=== PATIENT | female | born 1945 | race Caucasian/White ===

== ENCOUNTER 2017-08-06 09:27 | Outpatient (CLI) | payer MEDICARE ==
--- NOTE | 2017-08-06 11:36 | RAD ---
LEFT KNEE 4 VIEWS: HISTORY: Knee pain. FINDINGS: Moderate degenerative changes are noted. There is narrowing of the medial joint space. There is cho ndrocalcinosis in the medial joint space along with moderate hypertrophic spurring from the medial co ndyle. Mild spurring from the lateral condyles, tibial spine, and posterior patella also noted. IMPRESSION: Moderate degenerative changes of the left knee as described. POS: [facility]
== END 2017-08-06 09:28 | disposition home or self-care (01) ==
LOC: NAV RAD 09:27
PROVIDERS: ATTEND Internal Medicine
DX: M25.562 Pain in left knee (principal); M17.12 Unilateral primary osteoarthritis, left knee